=== PATIENT | male | born 1995 | race Caucasian/White ===

== ENCOUNTER 2016-07-14 19:23 | Emergency (ER) | payer BC ==
[2016-07-14 19:41] VITALS: BP 125/76; PULSE 86; TEMP 98.9; BMI 26.3
[2016-07-14] MEDS ORDERED: SODIUM CHLORIDE 1,000 ML IV STA (20:20)
[2016-07-14] MEDS ORDERED: ONDANSETRON 4 MG/2 ML VIAL IVPUSH ONE (20:20)
[2016-07-14] MEDS ORDERED: PANTOPRAZOLE SODIUM 40 MG in SODIUM CHLORIDE 100 ML IVPB ONE (20:20)
[2016-07-14] MEDS ORDERED: PANTOPRAZOLE SODIUM 40 MG VIAL ONE (20:26)
[2016-07-14] MEDS ORDERED: ONDANSETRON 4 MG/2 ML VIAL ONE (20:26)
--- NOTE | 2016-07-14 20:34 | PDOC ---
History of Present Illness - General Chief Complaint: Pain Stated Complaint: ABD PAIN/VOMITING Time Seen by Provider: 07/14/16 19:57 History Source: Patient Exam Limitations: No Limitations - History of Present Illness Travel History: No Initial Comments: 07/14/16 20:23 20yo Male patient presents to ED c/o abd pain w/ bloating. Patient states symptom began 2 months ago. He c/o nausea/vomiting, abd bloating, fullness, and only eating once a day. Patient reports he saw Dr. Echavarria 1 month ago and was prescribed Metronidazole and Metoclopramide, but is unsure of as to why he was taking the medications. Patient reports normal BM. He denies any other complaints at this time. PCP- none. Dr. Echavarria (GI) Timing/Duration: reports: getting worse Quality: reports: moderate, fullness Abdominal Pain Onset Location: reports: RLQ, LLQ, epigastric Pain Radiation: reports: no radiation Activities at Onset: reports: eating Treatment Prior to Arrive: improves with: other (Rx medications. See HPI) Aggravating Factors: improves with: Eating Alleviating Factors: improves with: Vomiting Past History - Travel Traveled outside of the country in the last 30 days: No Close contact w/someone who was outside of country & ill: No - Past Medical History Allergies/Adverse Reactions: Allergies Allergy/AdvReac Type Severity Reaction Status Date / Time No Known Allergies Allergy Verified 07/14/16 19:39 Home Medications: Ambulatory Orders Esomeprazole Magnesium 20 mg PO DAILY #30 capsule. 07/14/16 - Surgical History Appendectomy: Yes - Psycho/Social/Smoking Cessation Hx Suicidal Ideation: No Smoking History: Current every day smoker Number of Cigarettes Smoked Daily: 2 Information on smoking cessation initiated: No Abd/GI Specific PMHX - Complaint Specific PMHX Colitis: No Diverticulitis: No Gall Bladder Disease: No GERD: No Hepatitis: No Irritable Bowel Synd (IBS): No Pancreatitis: No GI Ulcer Disease: No Review of Systems - Review of Systems Able to Perform ROS?: Yes Is the patient limited Armenian proficient: No Constitutional: No: Chills, Fever Respiratory: No: Cough, Orthopnea, Shortness of Breath, Stridor, Wheezing Cardiac (ROS): No: Chest Pain, Edema, Lightheadedness, Palpitations, Syncope, Chest Tightness ABD/GI: Yes: Nausea, Poor Appetite, Poor Fluid Intake, Vomiting, Other (Abd Bloating.). No: Abdominal Distended, Abd. Pain w/ defecation, Blood Streaked Bowels, Constipated, Diarrhea, Difficulty Swallowing, Rectal Bleeding, Indigestion, Abdominal cramping, Tarry Stools : No: Burning, Dysuria, Discharge, Frequency, Flank Pain, Hematuria, Pain, Urgency Musculoskeletal: No: Back Pain Integumentary: No: Erythema, Rash Neurological: No: Headache, Numbness, Paresthesia, Seizure, Tremors, Weakness, Ataxia, Dizziness All Other Systems: Reviewed and Negative *Physical Exam - Vital Signs Last Vital Signs Temp Pulse Resp BP Pulse Ox 98.9 F 86 18 125/76 98 07/14/16 19:39 07/14/16 19:39 07/14/16 19:39 07/14/16 19:39 07/14/16 19:39 - Physical Exam General Appearance: Yes: Nourished, Appropriately Dressed. No: Apparent Distress, Mild Distress, Moderate Distress, Severe Distress Neck: positive: Trachea midline, Supple. negative: Stridor Respiratory/Chest: positive: Lungs Clear, Normal Breath Sounds. negative: Chest Tender, Respiratory Distress, Accessory Muscle Use, Labored Respiration, Rapid RR Cardiovascular: positive: Regular Rhythm, Regular Rate. negative: Edema, JVD, Murmur Gastrointestinal/Abdominal: positive: Normal Bowel Sounds, Soft, Tenderness ( Mild generalized tenderness.). negative: Distended, Guarding, Rebound Musculoskeletal: positive: Normal Inspection. negative: CVA Tenderness Extremity: positive: Normal Capillary Refill, Normal Inspection, Normal Range of Motion. negative: Pedal Edema, Swelling Integumentary: positive: Normal Color, Dry, Warm Neurologic: positive: [employer] II-XII NML intact, Fully Oriented, Alert, Normal Mood/ Affect, Normal Response, Motor Strength 5/5 ED Treatment Course - LABORATORY CBC & Chemistry Diagram: 07/14/16 20:30 07/14/16 20:30 - RADIOLOGY Radiology Studies Ordered: Category Date Time Status GALLBLADDER US [US] Stat Ultrasound 07/14/16 20:20 Ordered Progress Note - Progress Note Progress Note: Patient reports feeling a little better. Denies pain, but still feels full. Plan: f/u with Dr. Echavarria as schedule. Rx Nexium. *DC/Admit/Observation/Transfer Diagnosis at time of Disposition: Abdominal bloating - Discharge Dispostion Disposition: HOME Condition at time of disposition: Improved Admit: No - Prescriptions Prescriptions: Esomeprazole Magnesium 20 mg PO DAILY #30 capsule.dr - Referrals Referrals: Nigel Echavarria MD [Staff Physician] - - Patient Instructions Printed Discharge Instructions: DI for Abdominal Pain-Adult Additional Instructions: FOLLOW UP WITH DR. ECHAVARRIA SOON POSSIBLE. CALL TO GET A CLOSER APPOINTMENT. TAKE MEDICATIONS PRESCRIBED. EAT SMALL MEALS INSTEAD OF LARGE MEALS. AVOID SODA. DRINK NATURAL JUICES. RETURN IF SYMPTOMS WORSEN OR ANY CONCERNS FOR FURTHER EVALUATION. Print Language: GERMAN
[2016-07-14 20:49] LABS: MCH 29.6 pg (25.7-33.7); MCHC 34.3 g/dl (32.0-35.9); MEAN CELL VOLUME 86.3 fl (80-96); MEAN PLT VOLUME 9.4 fl (7.5-11.1); PLATELET COUNT 199 K/MM3 (134-434); RDW 13.3 % (11.9-15.9); WHITE BLOOD COUNT 6.8 K/mm3 (4.0-10.0)
[2016-07-14 20:58] LABS: URINE APPEARANCE CLEAR; URINE BILIRUBIN NEGATIVE (NEGATIVE); URINE BLOOD NEGATIVE (NEGATIVE); URINE COLOR YELLOW; URINE GLUCOSE (UA) NEGATIVE (NEGATIVE); URINE KETONE NEGATIVE (NEGATIVE); URINE LEUK ESTERASE NEGATIVE (NEGATIVE); URINE NITRITE NEGATIVE (NEGATIVE); URINE PROTEIN NEGATIVE (NEGATIVE); URINE UROBILINOGEN 2.0 E.U/dl E.U./dl (0.2-1.0)
[2016-07-14 21:14] LABS: ALBUMIN 4.6 g/dl (3.4-5.0); AMYLASE 30 U/L (25-115); ANION GAP 8 (8-16); BILIRUBIN,TOTAL 0.4 mg/dL (0.2-1.0); CO2 26 mmol/L (21-32); CREATININE 0.9 mg/dL (0.7-1.3); GLUCOSE,RANDOM 84 mg/dL (74-106); SGOT/AST 18 U/L (15-37); SGPT/ALT 25 U/L (12-78); TOT PROT 7.7 g/dl (6.4-8.2)
[2016-07-14 21:15] LABS: ALK PHOS 59 U/L (45-117)
== END 2016-07-14 21:50 | disposition home or self-care (01) ==
LOC: JER 19:23
PROC: 3E033GC Introduction of Other Therapeutic Substance into Peripheral Vein, Percutaneous Approach (ICD-10-PCS; principal; 2016-07-14)
DX: R14.0 Abdominal distension (gaseous) (principal); R10.31 Right lower quadrant pain; R10.32 Left lower quadrant pain; F17.210 Nicotine dependence, cigarettes, uncomplicated
CPT/HCPCS: 36415; 76705-TC; 80053; 81003; 82150; 83690; 85027; 96365; 96375; 99282-25